=== PATIENT | male | born 1970 | race Caucasian/White ===

== ENCOUNTER 2019-01-31 05:32 | Day surgery (SDC) | payer OTHER, SELFPAY ==
--- NOTE | 2019-01-09 02:31 | HP_ITS ---
Intake Vital Signs 01/09/19 Height 6 ft 5 in 01/09/19 Weight: 267 lb 01/09/19 Body Mass Index (BMI) 31.6 01/09/19 Blood Pressure 119/75 01/09/19 Blood Pressure Location Rt brachial 01/09/19 Blood Pressure Position Sitting 01/09/19 Respiratory Rate 18 01/09/19 Pulse Rate 78 01/09/19 Pulse Source Monitor 01/09/19 Temperature 98.5 F 01/09/19 Temperature Source Oral 01/09/19 Pulse Ox 95 01/09/19 Oxygen Delivery Method room air Intake Visit Reasons: Umbilical Hernia Option Trader Required: No Is patient in pain?: No Allergies No Known Allergies Allergy (Unverified 01/09/19 14:17) Medications cyclobenzaprine 10 mg tablet 10 mg PO BID tab 01/09/19 [History Confirmed 01/09/19] gabapentin 100 mg capsule 100 mg PO BID 01/09/19 [History Confirmed 01/09/19] ibuprofen 800 mg tablet 800 mg PO BID tab 01/09/19 [History Confirmed 01/09/19] morphine ER 10 mg capsule,extended release pellets 15 mg PO Q24H cap 01/09/19 [History Confirmed 01/09/19] oxycodone-acetaminophen 10 mg-325 mg tablet 1 tab PO Q6H 01/09/19 [History Confirmed 01/09/19] PFSH Medical History Chronic back pain (Chronic) History of back problems (Acute) Surgical History (Updated 01/09/19 @ 14:15 by Yeni Jaquez) History of appendectomy (Acute) History of laparoscopic cholecystectomy (Acute) History of right inguinal hernia repair (Acute) History of umbilical hernia repair (Acute) Family History (Updated 01/09/19 @ 14:16 by Yeni Jaquez) Aunt Colon cancer Uncle Heart disease Social History (Updated 01/09/19 @ 14:31 by Enrico Connolly MD) Smoking Status: Former smoker Smokeless tobacco user: snuff alcohol intake: never substance use type: does not use HPI HPI HPI: DELILAH ARORA, is a 48 M who presents to the office today for HPI HPI Surgical H&P: Yes HPI: DELILAH ARORA, is a 48 M who presents to the office today for surgical care regarding a recurrent right inguinal hernia. Aunt is La. 48-year-old gentleman. Interestingly I have previously assisted him September 05 because of gallstone pancreatitis chronic cholecystitis cholelithiasis I performed a lap scopic cholecystectomy with cholangiography and then did a Nurolon umbilical herniorrhaphy. At the time of that operation I said that there was significant amount of adhesions of the cecum and ascending colon to the right lower quadrant mid abdomen. He had a significant phlegmon in the upper abdomen at that time with omental adhesions to the gallbladder. He otherwise did well. His pathology showed acute chronic cholecystitis and cholelithiasis. He claims that he has had a remote right inguinal hernia repair. He says this was done through an open incision that there is mesh in place as well. At least for 1 year he has had known recurrence of his right inguinal hernia but 3 weeks ago his pain became much more symptomatic. He has to self reduce the area. He does wear a truss. 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 He does have chronic pain issues and is managed by a pain specialty center out of [place]. He is on multiple medications as noted ROS General General: No weight change, appetite, fatigue, colon cancer, breast cancer or weakness HEENT HEENT: No difficulty swallowing, eye injury, eye surgery, swollen glands or hoarseness Endo Endocrine: No thyroid disease, diabetes mellitus, thyroid cancer, Hair loss, heat intolerance or cold intolerance Skin Skin: No rash or changing moles Breast Breast: No left breast lump, right breast lump, nipple discharge, breast pain, abnormal mammogram, abnormal US or breast enlargement Musc Musculoskeletal: Yes back problems; no arthritis, rheumatoid arthritis, gout or joint pain Cardio Cardiovascular: No murmur, pacemaker, heart disease, atrial fibrillation, high blood pressure, heart attack, heart stent, palpitations, shortness of breat with exertion or chest pain Psych Psychiatric: No depression, anxiety or hearing voices Resp Respiratory: No shortness of breath, No sleep apnea, No cough, No COPD, No asthma, No emphysema, No wheezing Gastro Gastrointestinal: No abdominal pain, No nausea or vomiting, No diarrhea, No constipation, No blood in stool, No acid reflux, No hemorrhoids, No ulcers, No gallbladder problem, No black,tarry stools Gonzalez Hematologic: No blood thinners, No blood disorders, No bleeding, No anemia, No blood clots Neuro Neurologic: No system reviewed and no additional complaints, except as docu, No as per HPI, No abnormal walking, No abnormal hearing, No abnormal movements, No abnormal speech, No behavioral changes, No burning sensations, No confusion, No seizure-like activity, No unsteadiness, No dizziness, No localized weakness, No frequent falls, No headache(s), No lack of coordination, No loss of vision, No memory loss, No numbness, No other visual disturbances, No radiating pain, No restless legs, No sensory deficit, No fainting, No tingling, No tremor(s), No weakness, No other Exam Const General: cooperative, healthy appearing, comfortable, no acute distress Nutritional Appearance: average body habitus Orientation: alert, awake HENNM Head: normal to inspection Chest Chest palpation & inspection: normal inspection of the chest Breast Palpation: No nipple discharge Resp Effort & Inspection: normal respiratory effort Auscultation: clear to auscultation bilaterally Cardio Rate: regular rate Rhythm: regular rhythm Heart Sounds: no murmurs GI Other: Soft, nontender, healed incision of the umbilicus with no distinct palpable defect, well-healed oblique right lower quadrant incision. Well-healed right groin incision. Normal bowel sounds Other: Symptomatic recurrent medial right inguinal hernia reducible with supine positioning and pressure. Testicles are descended without mass Left groin is solid and intact Musc Cervical Spine: normal cervical lordosis Neuro General: alert, awake Extrem General: no calf tenderness bilaterally Psych Affect: normal affect Assessment & Plan Problems 1. Recurrent inguinal hernia of right side without obstruction or gangrene K40.91 Plan 48-year-old gentleman with a recurrent right inguinal hernia. Previous repair was done externally with mesh. He is also had a previous suture repair of an umbilical hernia. He has known adhesions of cecum and ascending colon to the right lower quadrant. I do propose for him a laparoscopic recurrent right inguinal hernia repair with mesh and I discussed the technique, benefits, risks and alternatives. Care will need to be taken as far as port placement. In addition I will need to inspect the umbilical area at the completion to see if mesh reinforcement is required at that location as well. The patient is on chronic pain medication. I anticipate performing a nerve block but not adding additional medications to his listing. He has had an opportunity to ask and have questions answered. We will schedule and proceed at his discretion. He does not have a local primary care physician Enrico Connolly M.D., F.A.C.S. Coding Level of Care Code Off vis,new,level 4 Diagnoses Recurrent inguinal hernia of right side without obstruction or gangrene K40.91 01/09/19 1431 <Electronically signed by Enrico brian MD> Date _ Enrico Connolly MD I have re-examined the patient. There are no clinical changes since date of exam.
[2019-01-09 14:16] VITALS: BMI 31.6
--- NOTE | 2019-01-30 11:41 | EKG12_ITS ---
Test Reason : PREOP Blood Pressure : / mmHG Vent. Rate : 074 BPM Atrial Rate : 074 BPM P-R Int : 158 ms QRS Dur : 100 ms QT Int : 358 ms P-R-T Axes : 073 058 027 degrees QTc Int : 397 ms Normal sinus rhythm Normal ECG Confirmed by CLIFTON CHAUDHARY, WANDA ([id number]), editor news LAN KAHN ([id number]) on 01/30/2019 2:52:26 PM Referred By: Enrico Connolly Confirmed By:WANDA LAZO MD
[2019-01-30 12:43] LABS: Hematocrit 46.1 % (40-54); Hemoglobin 15.3 g/dL (13.0-16.5); Mean Corp Hgb Conc 33.2 g/dL (32-36); Mean Corpuscular Hgb 29.8 pg (27.0-32.0); Mean Corpuscular Volume 89.9 fL (80-94); Mean Platelet Vol. 11.9 fl (6.2-12.0); Platelet Count 175 K/mm3 (150-450); RBC Distribution Width CV 13.1 % (11.6-14.6); Red Blood Count 5.13 M/mm3 (4.6-6.2); White Blood Count 6.9 K/mm3 (4.4-11.0)
[2019-01-30 13:11] LABS: Anion Gap 5 (5-15); BUN 15 mg/dL (7-18); BUN/Creat Ratio 13.8 RATIO (10-20); Calcium,Total 8.9 mg/dL (8.5-10.1); Chloride 108 mmol/L (98-107); Creatinine, Serum 1.09 mg/dL (0.70-1.30); EST Glomerular Filtration Rate 77 mL/min (>60); Est Glom Filt Rate - Afr Amer 93 mL/min (>60); Glucose 90 mg/dL (74-106); Sodium Level 141 mmol/L (136-145)
[2019-01-31 06:03] VITALS: BP 134/54; PULSE 64; RESP 15; TEMP 36.9; O2SAT 95; BMI 31.3
[2019-01-31] MEDS: Lactated Ringers 1,000 ML 15 ML IV (06:09)
--- NOTE | 2019-01-31 07:03 | PCM.DC.GS ---
Discharge Diet: Light diet - advance as tolerated - if you have questions about your diet instructions, please talk to you doctor. Discharge Activity: May Not Drive - for 3-5days or while taking narcotic pain medicine. May shower in (days): 1 Lifting Restrictions: 10 pounds Call your doctor if your incision/area has: Continuous Slow Oozing, Sudden Increased Bleeding, Increased Pain/ Swelling, Increased Redness, Foul Smelling Discharge Call your doctor if you observe: Fever of 101 or Higher Suture Line Care: Avoid Pulling/Pushing, Avoid Pinching/Bending Additional Dressing/Incision Instructions:: Change or remove dressing in 4 days. Leave steri-strips in place for 1 week. Allergies/Adverse Reactions: Allergies No Known Allergies Allergy (Unverified 01/31/19 06:00) Medications to take at Discharge cyclobenzaprine 10 mg tablet 10 mg PO BID tab 01/09/19 gabapentin 100 mg capsule 200 mg PO QHS 01/09/19 ibuprofen 800 mg tablet 800 mg PO BID tab 01/09/19 morphine ER 10 mg capsule,extended release pellets 15 mg PO QHS cap 01/09/19 oxycodone-acetaminophen 10 mg-325 mg tablet 1 tab PO Q6H 01/09/19 Orders to be completed after discharge: 12 Lead EKG [[facility]] Time Frame: 01/25/19, Facility: [facility], Location: Cardiovascular Services Basic Metabolic Profile (BMP) Time Frame: 01/25/19, Facility: [facility], Location: Laboratory CBC-Complete Blood Cnt No Diff Time Frame: 01/25/19, Facility: [facility], Location: Laboratory Primary Care Physician: Care Physician,No Primary [Primary Care Provider] - Test Results: Test results from this visit will be discussed in further detail at your follow-up appointment, if applicable. Please Follow Up With: Enrico oCnnolly MD - [phone] When: Call to make an appointment to be seen in about 10 days.
[2019-01-31] MEDS: Cefazolin 2 GM in 0.9% Normal Saline 100 ML IV (07:13)
[2019-01-31] MEDS: Bupivacaine Mpf 0.5% 30 ML VIAL (08:20)
--- NOTE | 2019-01-31 08:28 | OP.PCM_ITS ---
Problem List (1) Recurrent inguinal hernia of right side without obstruction or gangrene Status: Acute Report of Operation Date of Procedure: 01/31/19 Pre-Operative Diagnosis: Recurrent right inguinal hernia Post-Operative Diagnosis: Recurrent indirect right inguinal hernia with significant cicatrix Surgery/Procedure Performed:: Laparoscopic recurrent right inguinal herniorrhaphy, Bard 3D max extra-large mesh lot number [id number]. Reference #[id number]. Expiry date 01/19/2021 Description of Surgical Findings:: Timeout and informed consent was obtained. 48 old gent was taken out from p lacement table underwent general endotracheal intubation anesthesia. Ancef 2 g were given intravenous preoperatively. The abdomen sterilely prepped draped. 0.5% Marcaine was used as local anesthetic. Skin sites were pre-anesthetized. A vertical infraumbilical incision was created holding sutures 0 Vicryl placed varies needle inserted saline drop test performed the abdomen was insufflated with CO2 to a pressure of 10 mmHg pressure. Under laparoscopic visualization 5 Brito port was placed in the left lower quadrant and laterally in the right lower quadrant. There were some adhesions of cecum to the right lower quadrant but I was able to avoid that with the trocar. Left groin appeared to be mostly solid. The right groin had evidence of recurrent indirect hernia and there was cicatrix holding tissue just medial to the internal ring. I incised the peritoneum superior lateral to the internal ring. I did perform laparoscopically and ileal inguinal nerve block with Marcaine. Then tedious dissection was performed in order to free the peritoneum. I had a duplex dissection sharp dissection. Hemo-lock clips were used throughout for hemostasis. Carefully the very large sac was dissected free cord lipoma was dissected free as well. Was able to completely gain access to the direct space indirect space and finally dissected the scar tissue and the peritoneum free from the femoral area. I now had good exposure to all areas. I placed an extra-large Bard 3D max mesh. Carefully secured in place medially superiorly and laterally with secure strap. Excellent positioning was achieved with very nice coverage of the defect area. I approximated the peritoneum to itself completely obliterating access to the mesh. Trochars removed under visualization. Because of his previous umbilical hernia repair done with Nurolon at the time of his gallbladder I elected to use a 0 Nurolon to close the umbilical port site. A [id number] suture was used. Skin edges approximate interrupted 4 Monocryl subdermal stitches. Steri-Strips Telfa and OpSite dressings applied. Sponge and instrument and needle counts were reported to the surgeon to be correct. Blood loss was minimal. He was taken to the recovery area in satisfactory addition without apparent complication. Specimens none. Drains none. Blood loss minimal. Enrico Connolly M.D., F.A.C.S.
[2019-01-31] MEDS: Lactated Ringers 1,000 ML 100 ML IV (08:31)
[2019-01-31 08:56] VITALS: BP 125/74; BP 134/54; PULSE 61; RESP 12; TEMP 36.4; O2SAT 93
[2019-01-31 09:00] VITALS: BP 117/74; BP 134/54; PULSE 63; RESP 16; O2SAT 93
[2019-01-31 09:15] VITALS: BP 117/79; BP 134/54; PULSE 58; RESP 16; O2SAT 94
[2019-01-31 09:31] VITALS: BP 110/82; BP 134/54; PULSE 54; RESP 16; TEMP 36.6; O2SAT 95
[2019-01-31] MEDS: HYDROcodone Bitartrate/Apap 5/325 Tablet PO (09:48)
[2019-01-31 10:54] VITALS: BP 116/79; BP 134/54; PULSE 63; RESP 16; TEMP 36.6; O2SAT 95
== END 2019-01-31 10:56 | disposition home or self-care (01) ==
LOC: SDC 05:32 → AC 05:33
PROVIDERS: Referring Provider Surgery; Visit Provider Surgery
PROC: (CPT 49650; principal; 2019-01-31 06:55)
DX: K40.91 Unilateral inguinal hernia, without obstruction or gangrene, recurrent (principal); M48.00 Spinal stenosis, site unspecified; Z87.19 Personal history of other diseases of the digestive system; Z90.49 Acquired absence of other specified parts of digestive tract; Z87.891 Personal history of nicotine dependence
CPT/HCPCS: 00840; 49651; 36415; 80048; 85027; 93005; J7120; C1781; J2405

== ENCOUNTER → 2023-03-03 | Outpatient (CLI) | payer OTHER, SELFPAY ==
--- NOTE | 2023-03-03 17:04 | RAD_ITS ---
STUDY: X-RAY - LUMBAR SPINE REASON FOR EXAM: Male, 52 years old. PAIN TECHNIQUE: 2 view(s) of the lumbar spine were obtained. COMPARISON: None FINDINGS: Normal lumbar lordosis. Possible minimal scoliosis with convexity to the left. There is a normal alignment of the vertebrae. There is multilevel endplate spondylosis of the lumbar vertebrae. There is mild multi-level degenerative disc disease with multi-level disc space narrowing. There is no demonstrated fracture. Multilevel bilateral facet hypertrophy. The soft tissue structures are unremarkable. RAD/Lumbar Spine 2 or 3 Views IMPRESSION: Mild spondylosis/degenerative disease with no acute fracture or spondylolisthesis. Electronically Signed: Татьяна Berrios MD at 17:26 EST ,
== END | disposition home or self-care (01) ==
LOC: RAD 17:02
PROVIDERS: Referring Provider Anesthesiology Pain Medicine; Visit Provider Anesthesiology Pain Medicine
DX: M51.36 Other intervertebral disc degeneration, lumbar region (principal); M51.37 Other intervertebral disc degeneration, lumbosacral region
CPT/HCPCS: 72100

== ENCOUNTER → 2023-03-22 | Outpatient (CLI) | payer OTHER, SELFPAY ==
--- NOTE | 2023-03-22 15:02 | RAD_ITS ---
STUDY: X-RAY - ORBITS REASON FOR EXAM: Male, 52 years old. HX OF METAL TO EYES FOR MRI CLEARANCE TECHNIQUE: 2 view(s) of the orbits were obtained. COMPARISON: None. FINDINGS: Normal bilateral orbits without a metallic orbital foreign body. Normal visualized facial bones. Normal paranasal sinuses. The soft tissue structures are unremarkable. RAD/Orbits for Foreign Body IMPRESSION: No demonstrated metallic orbital foreign body. The patient is cleared for an MRI examination. Electronically Signed: Dusty Bae MD at 15:14 EST ,
--- NOTE | 2023-03-22 16:15 | MRI_ITS ---
INDICATION: RADICULOPATHY EXAMINATION: MRI - MR Spine Lumbar W/O Contrast TECHNIQUE: Multiplanar and multisequence MR images of the lumbar spine. IV Contrast Dosage and Agent: None. COMPARISON: No relevant prior comparison study available FINDINGS: VERTEBRAE: Vertebral body heights are preserved. Normal vertebral bodies and posterior elements. VERTEBRAL ALIGNMENT: No spondylolisthesis. There is preservation of the normal lumbar lordosis. CORD: Normal position and signal intensity of the conus medullaris. IMAGED THORACIC SPINE: Small diffuse disc bulges at T10-11 and T11-12 accompanied by loss of disc space height. No significant central canal stenosis or foraminal narrowing at these levels. L1/L2: Small posterior disc bulge. Mild facet arthropathy and ligamentum flavum hypertrophy. No central canal stenosis or foraminal narrowing. L2/L3: Small posterior disc bulge. Mild facet arthropathy and ligamentum flavum hypertrophy. No central canal stenosis or foraminal narrowing. L3/L4: Small posterior disc bulge. Moderate facet arthropathy and ligamentum flavum hypertrophy. No central canal stenosis or foraminal narrowing. L4/L5: Near complete obliteration of the disc space height without significant herniation. There are, however, endplate osteophytes and mild facet arthropathy. No central canal stenosis or foraminal narrowing. L5/S1: Moderate loss of disc space height associated with a tiny posterior disc bulge and small endplate osteophytes. Mild facet arthropathy. No central canal stenosis or foraminal narrowing. SOFT TISSUES: Unremarkable. MRI/Spine Lumbar (Routine) IMPRESSION: * Discogenic degenerative disease as described. * No significant central canal stenosis or foraminal narrowing at any level. Electronically Signed: Kostas Brooks MD at 7:09 EST ,
== END | disposition home or self-care (01) ==
LOC: MRI 14:57
PROVIDERS: Referring Provider Anesthesiology Pain Medicine; Visit Provider Anesthesiology Pain Medicine
DX: M54.16 Radiculopathy, lumbar region (principal)
CPT/HCPCS: 70030; 72148